=== PATIENT | male | born 1950 | race Caucasian/White ===

== ENCOUNTER 2022-01-30 12:42 | Inpatient (IN) | payer OTHER ==
[~2022-01-30] VITALS: Ht 175.3 cm; Wt 71.3 kg
[~2022-01-30 12:42] MED LIST: AMOCLA875 PO; ASPI81CH PO; COENZYME Q-1030 MG PO; DANDELION PO; HAWTHORN BERRI565 MG PO; HYDCHL25 PO; L-LYSINE500 MG PO; OXYC5 PO; Red Yeast Rice600 MG PO; SAW PALMETTO PO; [UNRECOGNIZED DRUG - OTHER] PO; [UNRECOGNIZED DRUG - OTHER] PO
[2022-01-30 13:40] LABS: BASOPHILS ABSOLUTE AUTO 0.03 K/mm3 (0.00-0.23); BASOPHILS PERCENT AUTO 0 % (0-2); EOSINOPHILS ABSOLUTE AUTO 0.04 K/mm3 (0.00-0.68); EOSINOPHILS PERCENT AUTO 1 % (0-6); Hematocrit 46.8 % (37.0-53.0); IMMATURE GRAN ABSOLUTE AUTO 0.01 K/mm3 (0.00-0.10); IMMATURE GRAN PERCENT AUTO 0 % (0-1); LYMPHOCYTES ABSOLUTE AUTO 0.85 K/mm3 (0.84-5.20); LYMPHOCYTES PERCENT AUTO 12 % (21-46); MONOCYTES ABSOLUTE AUTO 0.45 K/mm3 (0.16-1.47); MONOCYTES PERCENT AUTO 6 % (4-13); Mean Corpuscular HGB 31.7 pg (26.0-34.0); Mean Corpuscular HGB Conc 34.2 g/dL (31.5-36.5); Mean Corpuscular Volume 93 fL (80-100); Mean Platelet Volume 9.8 fL (9.1-12.4); NEUTROPHILS ABSOLUTE AUTO 5.85 K/mm3 (1.96-9.15); NEUTROPHILS PERCENT AUTO 81 % (41-73); Platelet Count 239 K/mm3 (150-400); RDW Coefficient Variation 11.9 % (11.7-14.2); RDW Standard Deviation 40.9 fL (35.1-46.3); Red Blood Cell Count 5.04 M/mm3 (4.30-5.90); White Blood Cell Count 7.23 K/mm3 (4.00-11.30)
[2022-01-30 13:53] LABS: Alanine Aminotransfer (ALT/SGP 34 U/L (12-78); Albumin, Blood 3.9 g/dL (3.4-5.0); Albumin/Globulin Ratio 1.4 (0.8-1.8); Alk Phos 70 U/L (50-136); Anion Gap 6 mmol/L (6-16); Aspartate Aminotrans (AST/SGOT 64 U/L (12-37); Bilirubin, Total 0.6 mg/dL (0.1-1.0); Blood Urea Nitrogen 28 mg/dL (8-24); Bun/Creatinine Ratio 30.9 (12.0-20.0); CO2, Blood 28 mmol/L (21-32); Calcium, Blood 9.8 mg/dL (8.5-10.1); Chloride, Blood 108 mmol/L (98-108); Creatinine, Blood 0.91 mg/dL (0.60-1.20); Globulin, Blood 2.7 g/dL (2.2-4.0); Glomerular Filtration Rate >60 (60-); Glucose, Blood 107 mg/dL (70-99); Potassium, Blood 3.8 mmol/L (3.5-5.5); Sodium, Blood 142 mmol/L (136-145); Total Protein, Blood 6.6 g/dL (6.4-8.2)
[2022-01-30 15:28] LABS: International Normalized Ratio 1.07; Prothrombin Time Results 11.2 Sec (9.7-11.5)
--- NOTE | 2022-01-30 22:37 | NUR ---
CARE ASSUMPTION: PATIENT VSS, DENIED SOB OR CHEST PAIN, AND STATED HE WAS FEELING "MUCH BETTER THAN EARLIER." HE WAS RESTING IN BED W/O CALL LIGHT. ORIENTED PATIENT TO ROOM AND INSTRUCTED IN USE OF CALL LIGHT. PATIENT REQUESTED BOTTLE WATER AND FOR SECURITY TO LOCK UP HIS WALLET. SECURITY WAS CALLED AND DOCUMENTED HIS BELONGINGS - COLLECTION TAG IS IN FRONT OF CHART. BLOOD CONSENT AND RELEASE FORMS ARE SIGNED. HEPARIN IS RUNNING PER EMAR. PATIENT WILL BE NPO AT MIDNIGHT.
--- NOTE | 2022-01-30 23:31 | NUR ---
PATIENT REPORTED CHEST PAIN 03/28. GAVE NITRO SUBLING X3. PATIENT'S HR 48-55, BP WNL. O2 SAT >93%. EKG TAKEN. WILL FOLLOW-UP WITH HOSPITALIST.
[2022-01-31 03:39] LABS: BASOPHILS ABSOLUTE AUTO 0.02 K/mm3 (0.00-0.23); BASOPHILS PERCENT AUTO 0 % (0-2); EOSINOPHILS ABSOLUTE AUTO 0.05 K/mm3 (0.00-0.68); EOSINOPHILS PERCENT AUTO 1 % (0-6); Hematocrit 43.6 % (37.0-53.0); IMMATURE GRAN ABSOLUTE AUTO 0.02 K/mm3 (0.00-0.10); IMMATURE GRAN PERCENT AUTO 0 % (0-1); LYMPHOCYTES ABSOLUTE AUTO 0.65 K/mm3 (0.84-5.20); LYMPHOCYTES PERCENT AUTO 8 % (21-46); MONOCYTES ABSOLUTE AUTO 0.64 K/mm3 (0.16-1.47); MONOCYTES PERCENT AUTO 8 % (4-13); Mean Corpuscular HGB Conc 34.4 g/dL (31.5-36.5); Mean Corpuscular Volume 93 fL (80-100); Mean Platelet Volume 9.6 fL (9.1-12.4); NEUTROPHILS ABSOLUTE AUTO 6.48 K/mm3 (1.96-9.15); NEUTROPHILS PERCENT AUTO 82 % (41-73); Platelet Count 200 K/mm3 (150-400); RDW Coefficient Variation 12.2 % (11.7-14.2); Red Blood Cell Count 4.69 M/mm3 (4.30-5.90); White Blood Cell Count 7.86 K/mm3 (4.00-11.30)
[2022-01-31 04:07] LABS: Alanine Aminotransfer (ALT/SGP 273 U/L (12-78); Albumin, Blood 3.4 g/dL (3.4-5.0); Albumin/Globulin Ratio 1.4 (0.8-1.8); Alk Phos 86 U/L (50-136); Anion Gap 6 mmol/L (6-16); Aspartate Aminotrans (AST/SGOT 452 U/L (12-37); Bilirubin, Total 1.2 mg/dL (0.1-1.0); Blood Urea Nitrogen 27 mg/dL (8-24); Bun/Creatinine Ratio 29.7 (12.0-20.0); CO2, Blood 27 mmol/L (21-32); Calcium, Blood 8.6 mg/dL (8.5-10.1); Chloride, Blood 109 mmol/L (98-108); Creatinine, Blood 0.91 mg/dL (0.60-1.20); Globulin, Blood 2.4 g/dL (2.2-4.0); Glomerular Filtration Rate >60 (60-); Glucose, Blood 132 mg/dL (70-99); Potassium, Blood 4.1 mmol/L (3.5-5.5); Sodium, Blood 142 mmol/L (136-145); Total Protein, Blood 5.8 g/dL (6.4-8.2)
--- NOTE | 2022-01-31 06:08 | NUR ---
SHIFT SUMMARY: PATIENT'S HR 40-60S, OTHER VSS STABLE. HOSPITALIST ORDERED MORPHINE FOR CHEST PAIN AFTER NITRO HAD BEEN ADMINISERED X3 - SEE PREVIOUS NOTE RE: ACUTE CHEST PAIN. AFTER THE MORPHINE WAS ADMINISTERED THE PATIENT WAS ABLE TO SLEEP FOR A COUPLE HOURS. WHEN HE AWOKE HE SAID HIS CHEST PAIN WAS "BARELY THERE, MAYBE A 1." HE AWOKE RESTED JUST BEFORE 0400 AND EXPRESSED GRATITUDE FOR STAFF "THAT WAS REALLY SCARY." HE IS WORKING ON A [employer]OSSWORD PUZZLE IN BED WITH HEPARIN RUNNING PER RX AND CALL LIGHT IN REACH. PLAN IS FOR A LEFT RADIAL ANGIOGRAM TODAY. WILL CONTINUE TO MONITOR AND REPORT TO ONCOMING RN.
--- NOTE | 2022-01-31 07:29 | NUR ---
Bedside report and verification of heparin gtt. Pt is awake, alert and oriented, lying in bed, states only very mild chest discomfort, 1/10 at this time. Denies any other discomfort, dyspnea or diaphoresis. sTates that the morphine he received last night took all his chest pain (6/10 at the time) away.
--- NOTE | 2022-01-31 08:05 | NUR ---
Pt confirmed NPO status since last night. Given a sip of water at this time to take his scheduled medications. NPO, waiting for word on when he will go for angiogram this morning.
--- NOTE | 2022-01-31 10:37 | NUR ---
continue heparin gtt at present rate new order noted.
[2022-01-31 12:45] LABS: CHOL/HDL RATIO 2.6; Cholesterol 159 mg/dL (50-200); HDL Cholesterol 61 mg/dL (>39); LDL/HDL RATIO 1.4; Low Density Lipoprotein Chol 85 mg/dL (0-110); Triglycerides 63 mg/dL (30-160); Very Low Density Lipoprot Chol 12 mg/dL (6-32)
--- NOTE | 2022-01-31 14:03 | NUR ---
Pt was taken to the heart center for angiogram at this time. Call to his to let her know at his request that he was going for the procedure now.
--- NOTE | 2022-01-31 17:08 | NUR ---
Pt returned from the label operator, at 1620, agitated and angry. Expressed that he wanted all of the staff to leave the room except for the PCU nurses. He was very terrified by his experience during the angiogram, said that there were strange contraptions and machines and no one would communicate with him about what was going on, and he was afraid of what they were doing to him. Pt encouraged to express his emotions and relate his experience. Saundra (nurse discharge) and myself explained to him afterwards about his procedure, arterial access, TR band, and recovery process. He expressed relief and gratitude and said that he was so glad to be back with people whom he felt that he knew. Left arm radial artery access site has two TR bands on : first one has 15 cc air in it, 5 cc being added at 1630 when pt returned heart center staff were giving us bedside report and the pt had some bleeding from the site. A second band was applied proximal and adjacent to the first when a hematoma was noted. Distal pulse is palpable; hand and fingers are cyanotic with cap refill 4 seconds. First and second digits are more cyanotic than the others. Pt states that his fingers do feel numb. Radial pulse is palpable distal to the TR band, and patient denies any pain in his left arm or left hand. White immoblizer board was placed and pt verbalized instructions to not bend the wrist, and not to use the hand/arm at this time until the recovery period is over. He was given a tray of sandwiches which he ate with a good appetite. is at the bedside.
--- NOTE | 2022-01-31 17:16 | NUR ---
Late note: heparin gtt was stopped at time of pt being taken to lab technician, and restarted per orders at 1640.
--- NOTE | 2022-01-31 18:30 | NUR ---
2 CC air removed from the distal TR band. 5 cc air removed from the proximal TR band. NO bleeding, no hematoma, no swelling. Pt continues to deny any pain in his left arm/hand.
[2022-02-01 04:08] LABS: Albumin/Globulin Ratio 1.2 (0.8-1.8); Bilirubin, Direct 0.1 mg/dL (0.0-0.3); Bilirubin, Indirect 0.5 mg/dL (0.1-0.7); Bilirubin, Total 0.6 mg/dL (0.1-1.0); Globulin, Blood 2.6 g/dL (2.2-4.0); Total Protein, Blood 5.6 g/dL (6.4-8.2)
--- NOTE | 2022-02-01 05:05 | NUR ---
SHIFT SUMMARY: PATIENT'S VSS T/O SHIFT, DENIES SOB AND CHEST PAIN. PATIENT STOPPED HEPARIN DRIP X2 AND WAS RE-EDUCATED ON IMPORTANCE OF CALLING STAFF IF MACHINE IS BEEPING. HEPARIN DRIP WAS STOPPED AND DISCONNECTED PER ORDERS AT 2200. PATIENT ALSO DISCONNECTED SELF FROM MONITORS AND TRIED TO GET OUT OF BED. WHEN ASKED ABOUT IT HE STATED, "I WAS JUST SURE I DIDN'T NEED ALL THESE WIRES." EDUCATED PATIENT WHAT EACH WIRE WAS CONNECTED TO AND WHY WE NEEDED TO MONITOR. PATIENT EXPRESSED UNDERSTANDING AND GRATITUDE FOR CARE PROVIDED. DISTAL TR BAND WAS REMOVED AROUND 1939, HEMATOMA HAD NOT GROWN. REMAINING TR BAND HAD SOME BLEEDING AFTER A TOTAL AMT OF 5 CCS HAD BEEN REMOVED DURING CURRENT SHIFT SO 3 CCS WERE ADDED TO REACH HOMEOSTASIS. TR BAND WAS FULLY DEFLATED AFTER MIDNIGHT AND TEGADERM WAS APPLIED AT 0400. PATIENT HAS SOME BRUISING, RADIAL PULSE STRONG, FINGERS PINK AND WARM. PATIENT DENIES NUMBNESS OR PAIN. WILL CONTINUE TO MONITOR AND REPORT TO ONCOMING RN.
--- NOTE | 2022-02-01 08:13 | NUR ---
Pt is awake, alert, and oriented. Eager to be discharged home. STates since [facility] pharmacy is closed today, he will use [facility] for any new Rx. Left wrist arterial access site is bruised and slightly swollen, but pt states no pain. Clear tegederm dressing noted intact and clean, no bleeding or weeping from the area. Pt denies chest pain, dyspnea. Ate breakfast and has a hearty appetite. Asking for additional breakfast and coffee.
[2022-02-01] MEDS ORDERED: NITR.4SL SL (12:03)
[2022-02-01] MEDS ORDERED: METO25 PO (12:03)
[2022-02-01] MEDS ORDERED: CLOP75 PO (12:03)
[2022-02-01] MEDS ORDERED: ASPI81CH PO (12:03)
== END 2022-02-01 14:37 | disposition home or self-care (01) | DRG 247 ==
LOC: ER 12:42 → PCU 15:39
PROVIDERS: Emergency Medicine; Family Medicine; Nurse Practitioner Acute Care; Student in an Organized Health Care Education/Training Program; ADMIT Internal Medicine
PROC: 027034Z Dilation of Coronary Artery, One Artery with Drug-eluting Intraluminal Device, Percutaneous Approach (ICD-10-PCS; principal; 2022-01-31)
PROC: B2111ZZ Fluoroscopy of Multiple Coronary Arteries using Low Osmolar Contrast (ICD-10-PCS; 2022-01-31)
DX: I21.4 Non-ST elevation (NSTEMI) myocardial infarction (principal); I25.10 Atherosclerotic heart disease of native coronary artery without angina pectoris; I10 Essential (primary) hypertension; N40.0 Benign prostatic hyperplasia without lower urinary tract symptoms; G40.909 Epilepsy, unspecified, not intractable, without status epilepticus; Z95.1 Presence of aortocoronary bypass graft; F43.10 Post-traumatic stress disorder, unspecified; I71.4 Abdominal aortic aneurysm, without rupture; Z79.82 Long term (current) use of aspirin; Z79.899 Other long term (current) drug therapy; F10.20 Alcohol dependence, uncomplicated; Z90.49 Acquired absence of other specified parts of digestive tract; Z88.8 Allergy status to other drugs, medicaments and biological substances; Z55.5 Less than a high school diploma
CPT/HCPCS: 36415; 71045; 71275; 74175; 76937; 80053; 80061; 80076; 83036; 83735; 83880; 84484; 85025; 85347; 85520; 85610; 93005; 93010; 93306; 93455; 96374; 99152; 99153; 99285-25; A9270; C1725; C1769; C1874; C1887; C1894; C9600; J0171; J1644; J2250; J2270; J3010; J7030; J7050; Q9967